=== PATIENT | female | born 1990 | race American Indian/Alaskan Native ===

== ENCOUNTER 2020-07-11 11:51 | Emergency (ER) | payer OTHER ==
[2020-07-11] MEDS ORDERED: fentaNYL 100 MCG/2 ML INJ IV ONE (12:06)
[2020-07-11] MEDS ORDERED: ONDANSETRON 4 MG/2 ML INJ IV ONE (12:06)
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
[2020-07-11 12:38] LABS: Basophils # (Auto) 0.1 K/mm3 (0.0-0.1); Basophils % (Auto) 0.5 % (0.0-1.8); Eosinophils # (Auto) 0.2 K/mm3 (0.0-0.4); Eosinophils % (Auto) 1.2 % (0.0-4.3); Hematocrit 43.1 % (30.3-42.9); Hemoglobin 13.9 gm/dl (10.1-14.3); Lymphocytes # (Auto) 2.3 K/mm3 (1.2-5.4); Lymphocytes % (Auto) 19.3 % (13.4-35.0); Mean Corpuscular HGB Conc 32 % (30-34); Mean Corpuscular Volume 78 fl (79-97); Monocytes # (Auto) 0.8 K/mm3 (0.0-0.8); Monocytes % (Auto) 6.7 % (0.0-7.3); Platelet Count 283 K/mm3 (140-440); Red Blood Count 5.55 M/mm3 (3.65-5.03); Red Cell Distribution Width 14.3 % (13.2-15.2)
[2020-07-11 12:54] LABS: Blood Urea Nitrogen 8 mg/dL (7-17); Calcium 8.9 mg/dL (8.4-10.2); Hemolysis Index 36
[2020-07-11 12:56] LABS: BUN/Creatinine Ratio 20
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
[2020-07-11] MEDS ORDERED: INSULIN REGULAR, HUMAN 100 UNITS/1 ML IV ONE (13:06)
--- NOTE | 2020-07-11 13:57 | Cat Scan Report ---
CT ABDOMEN AND PELVIS WITH CONTRAST INDICATION / CLINICAL INFORMATION: Trauma. TECHNIQUE: Axial CT images were obtained through the abdomen and pelvis after 100 mL Omnipaque [address] scans at this location are performed using CT dose reduction for ALARA by means of automated exposure control. COMPARISON: None available. FINDINGS: LOWER CHEST: No significant abnormality. LIVER: There is a small focal hypodensity extending from the hepatic capsule near the hilum into hepa tic segment IVb measuring up to 2.4 cm in length (series 4, image 28, and series 602, image 69). Ther e is no adjacent fluid collection or stranding, suggesting that this is not related to acute injury. Given that this is near the site of the gallbladder fossa, this may reflect sequela of prior surgery/ retractor injury. The hepatic parenchyma is otherwise unremarkable. BILIARY SYSTEM: Prior cholecystectomy. PANCREAS: No significant abnormality. SPLEEN: No significant abnormality. ADRENALS: No significant abnormality. KIDNEYS and URETERS: No significant abnormality. STOMACH / BOWEL: No significant abnormality. PERITONEUM: No free fluid. No free air. No fluid collection. LYMPH NODES: No significant adenopathy. VASCULAR STRUCTURES: No significant abnormality. URINARY BLADDER: No significant abnormality. REPRODUCTIVE ORGANS: No significant abnormality. ADDITIONAL FINDINGS: None. SKELETAL SYSTEM: No significant abnormality. IMPRESSION: 1. No acute traumatic injury identified within the abdomen or pelvis. 2. A small hepatic low-density as described above is favored to be chronic, refer to discussion above . The above finding was discussed with Dr. Givens at 12:49 PM central time on 07/11/2020. Signer Name: Nayana Chambers MD Signed: 07/11/2020 1:52 PM Workstation Name: [id number]
[2020-07-11] MEDS ORDERED: hydrALAZINE 20 MG/1 ML INJ ONE (15:08)
[2020-07-11] MEDS ORDERED: hydrALAZINE 20 MG/1 ML INJ IV ONE (15:12)
[2020-07-11 15:59] VITALS: BP 158/111
== END 2020-07-11 16:39 | disposition home or self-care (01) ==
LOC: ED 11:51
DX: S80.01XA Contusion of right knee, initial encounter (principal); S30.1XXA Contusion of abdominal wall, initial encounter; I10 Essential (primary) hypertension; E11.65 Type 2 diabetes mellitus with hyperglycemia; Z98.890 Other specified postprocedural states; Z90.49 Acquired absence of other specified parts of digestive tract; Z88.6 Allergy status to analgesic agent; V49.49XA Driver injured in collision with other motor vehicles in traffic accident, initial encounter; Y92.410 Unspecified street and highway as the place of occurrence of the external cause; Y93.89 Activity, other specified; Y99.8 Other external cause status
CPT/HCPCS: 36415; 71045; 73562; 74177; 80048; 82962; 84703; 85025; 96374; 96375; 99285; J0360; J2405; J3010; Q9967; J1815